=== PATIENT | female | born 1935 | race African-American/Black ===

== ENCOUNTER 2018-02-20 16:01 | Emergency (ER) | payer MEDICARE ==
[2018-02-20 17:14] LABS: BASO % 0 % (0-3); EOS % 0 % (0-3); HEMATOCRIT 34.8 % (36.0-47.0); HEMOGLOBIN 11.6 g/dL (12.0-15.5); LYMPH % 9 % (24-48); MEAN CORPUSCULAR HEMOGLOBIN 31 pg (25-35); MEAN CORPUSCULAR HGB CONC 34 g/dL (31-37); MEAN CORPUSCULAR VOLUME 92 fL (79-100); MONO # 0.5 x10^3/uL (0.0-1.1); MONO % 5 % (0-9); NEUT # 9.5 x10^3uL (1.8-7.7); NEUT % 86 % (31-73); PLATELET COUNT 267 x10^3/uL (140-400); RED BLOOD COUNT 3.78 x10^6/uL (3.50-5.40); RED CELL DISTRIBUTION WIDTH 14.2 % (11.5-14.5); WHITE BLOOD COUNT 11.1 x10^3/uL (4.0-11.0)
[2018-02-20 17:16] LABS: ADD MAN DIFF? YES
[2018-02-20] MEDS: ONDANSETRON PF 4 MG/2 ML VIAL. IV (17:22)
[2018-02-20 17:30] LABS: ANION GAP 9 (6-14); BLOOD UREA NITROGEN 15 mg/dL (7-20); BUN/CREATININE RATIO 14 (6-20); CALCIUM 9.2 mg/dL (8.5-10.1); CARBON DIOXIDE 29 mmol/L (21-32); CHLORIDE 103 mmol/L (98-107); CREATININE 1.1 mg/dL (0.6-1.0); GFR 57.4; GLUCOSE 104 mg/dL (70-99); POTASSIUM 4.2 mmol/L (3.5-5.1); SODIUM 141 mmol/L (136-145)
[2018-02-20 17:37] LABS: ALBUMIN/GLOBULIN RATIO 0.5 (1.0-1.7); ALK PHOS 97 U/L (46-116); ALT (SGPT) 17 U/L (14-59); AST (SGOT) 24 U/L (15-37); CREATINE KINASE 66 U/L (26-192); LIPASE 69 U/L (73-393); TOTAL BILIRUBIN 0.7 mg/dL (0.2-1.0); TOTAL PROTEIN 8.7 g/dL (6.4-8.2)
[2018-02-20 17:40] LABS: TROPONINI < 0.017 ng/mL (0.000-0.055)
[2018-02-20 17:45] LABS: CREATINE KINASE 68 U/L (26-192)
[2018-02-20 17:45] LABS: NT-PRO BNP 752 pg/mL (0-449)
[2018-02-20 17:46] LABS: % BANDS 2 % (0-9); % LYMPHS 7 % (24-48); % MONOS 3 % (0-10); % SEGS 88 % (35-66)
[2018-02-20 17:47] LABS: CKMB INDEX 0.7 % (0-4); CKMB MASS < 0.5 ng/mL (0.0-3.6); PLT ESTIMATE ADEQUATE (ADEQUATE)
[2018-02-20 17:48] LABS: POLYCHROMASIA SLIGHT; TOXIC GRANULATION SLIGHT
== END 2018-02-20 18:24 | disposition left against medical advice (07) ==
LOC: ER 16:01
DX: R55 Syncope and collapse (principal); I10 Essential (primary) hypertension; Z86.73 Personal history of transient ischemic attack (TIA), and cerebral infarction without residual deficits; Z91.041 Radiographic dye allergy status
CPT/HCPCS: 36415; 71045; 80053; 82550; 82553; 83690; 83880; 84484; 85007; 85025; 93005; 96374; 99285-25; J2405